=== PATIENT | male | born 1935 | race Caucasian/White ===

== ENCOUNTER → 2017-06-15 | Outpatient (CLI) | payer OTHER, BC ==
[~2017-06-15] MED LIST: ALBUAER2; AMLO-114; ATEN-175; ATOR-26; AVN4; AVP150; CMD25; EZET10TA63; GEMF600T3; MULT-506; OXYC-57; ZNTT/150
== END | disposition home or self-care (01) ==
LOC: C.RDSM 13:57
PROVIDERS: ATTEND Physical Medicine & Rehabilitation Sports Medicine
DX: M17.10 Unilateral primary osteoarthritis, unspecified knee (principal)